=== PATIENT | female | born 1990 | race African-American/Black ===

== ENCOUNTER 2023-12-21 14:39 | Emergency (ER) | payer MEDICAID ==
[~2023-12-21] VITALS: Ht 160 cm; Wt 70.0 kg
[2023-12-21 14:40] VITALS: O2SAT 99
[2023-12-21] MEDS: LEVETIRACETAM 1000MG PREMIX 100 ML IV ONE (15:07)
[2023-12-21 15:14] LABS: BASOPHILS % 0.3 % (0.0-2.0); EOSINOPHILS % 0.3 % (0.0-5.0); HEMOGLOBIN. 12.9 g/dL (12.0-16.0); LYMPHOCYTES % 25.7 % (20.0-50.0); MEAN CORPUSCULAR HEMOGLOBIN 29.7 pg (28.0-32.0); MEAN CORPUSCULAR VOLUME 90.1 fL (81.0-99.0); MEAN PLATELET VOLUME 7.9 fl (7.4-10.4); MONOCYTES % 9.9 % (2.0-8.0); NEUTROPHILS % 63.8 % (40.0-76.0); PLATELET 269 x1000/uL (130-400); RED BLOOD CELL COUNT 4.33 mill/uL (4.2-5.4); RED CELL DISTRIBUTION WIDTH 13.7 % (11.6-14.6); WHITE BLOOD COUNT 5.8 x1000/uL (4.5-11.0)
[2023-12-21 15:15] VITALS: TEMP 98.4
[2023-12-21] MEDS: ONDANSETRON HCL 4MG/2ML INJ IV ONE (15:15)
[2023-12-21] MEDS: ACETAMINOPHEN 325MG TABLET PO ONE (15:15)
[2023-12-21 15:22] LABS: CARBON DIOXIDE 21 mEq/L (21-32); CHLORIDE 107 mEq/L (98-107); POTASSIUM 3.5 mEq/L (3.5-5.1); SODIUM 137 mEq/L (136-145)
[2023-12-21 15:23] LABS: CALCIUM 9.1 mg/dL (8.7-10.4)
[2023-12-21 15:25] LABS: HCG SCREEN NEGATIVE
[2023-12-21 15:27] LABS: CREATININE 0.9 mg/dL (0.6-1.0)
[2023-12-21 15:28] LABS: GLUCOSE 104 mg/dL (70-105); TROPONIN I HIGH SENSITIVITY 4 ng/L (3.0-34); UREA NITROGEN BLOOD 6 mg/dL (9-23)
[2023-12-21 15:29] LABS: ALANINE AMINOTRANSFERASE 9 IU/L (10-49); ALBUMIN 4.5 g/dL (3.2-4.8); ASPARTATE AMINOTRANSFERASE 19 IU/L (<34)
[2023-12-21 15:30] LABS: BILIRUBIN DIRECT 0.1 mg/dL (<=3.0); BILIRUBIN TOTAL 0.4 mg/dL (0.1-1.0); PHOSPHORUS 1.5 mg/dL (2.5-4.9); PROTEIN TOTAL 7.7 g/dL (6.0-8.3)
[2023-12-21 15:32] LABS: ETHANOL BLOOD < 10 mg/dL (<10)
[2023-12-21] MEDS: POTASSIUM-SODIUM PHOSPHATE POWDER PACKET PO ONE (17:02)
[2023-12-21 18:25] VITALS: BP 121/66; PULSE 76; RESP 20; O2SAT 99
== END 2023-12-21 18:42 | disposition home or self-care (01) ==
LOC: ER 14:39
DX: R56.9 Unspecified convulsions (principal)
CPT/HCPCS: 80076; 80048; 80320; 84703; 83735; 84100; 85025; 84484; 36415; 93005; 96365; 96375; 99284; J1953; J2405; G0480